=== PATIENT | female | born 1995 | race Caucasian/White ===

== ENCOUNTER 2019-12-21 16:13 | Inpatient (IN) | payer BC ==
[2019-12-22] MEDS ORDERED: TERBUTALINE 1 MG/ML VIAL SQ PRN (06:20)
[2019-12-22] MEDS ORDERED: LIDOCAINE 0.5% (PF) 5 MG/ML (50 ML SDV) SQ PRN (06:20)
[2019-12-22] MEDS ORDERED: CARBOPROST TROMETHAMINE 250 MCG/ML 1 ML AMP IM PRN (06:20)
[2019-12-22] MEDS ORDERED: OXYTOCIN 10 UNIT/ML 1 ML VIAL IM PRN (06:20)
[2019-12-22] MEDS ORDERED: METHYLERGONOVINE 0.2 MG/ML 1 ML AMP IM PRN (06:20)
[2019-12-22] MEDS ORDERED: OXYTOCIN 30 UNITS/500 ML NS 30 UNIT in SALINE 1 500ML.BAG IV SCH (06:20)
[2019-12-22] MEDS: LACTATED RINGERS 1,000 ML IV SCH ×2 (06:30→12:18)
[2019-12-22 06:42] LABS: Basophils % (A) 0 %; Eosinophils # (A) 0.1 k/uL (0-0.7); Eosinophils % (A) 1 %; HGB 11.7 gm/dL (11.4-16.0); Lymphocytes # (A) 1.9 k/uL (1.0-4.8); Lymphocytes % (A) 23 %; MCH 27.2 pg (25.0-35.0); MCHC 32.4 g/dL (31.0-37.0); Mean Platelet Volume 7.3; Monocytes # (A) 0.5 k/uL (0-1.0); Monocytes % (A) 6 %; Neutrophils # (A) 5.8 k/uL (1.3-7.7); Neutrophils % (A) 68 %; Platelet Count 332 k/uL (150-450); RBC 4.29 m/uL (3.80-5.40); RDW 13.6 % (11.5-15.5); WBC 8.6 k/uL (3.8-10.6)
[2019-12-22] MEDS ORDERED: SODIUM CHLORIDE 0.9% 100 ML BAG ONE (11:54)
[2019-12-22] MEDS ORDERED: fentaNYL (PF) 50 MCG/ML 5 ML AMP ONE (11:54)
[2019-12-22] MEDS ORDERED: ROPIVACAINE 5MG/ML 20ML VIAL ONE (11:54)
[2019-12-22] MEDS ORDERED: AMPICILLIN 250 MG VIAL IVPB ONE (20:17)
[2019-12-22] MEDS ORDERED: AMPICILLIN 2,000 MG in SODIUM CHLORIDE 0.9% 100 ML IVPB STA (20:21)
[2019-12-22] MEDS ORDERED: IBUPROFEN 600 MG TAB PO ONE (23:30)
[2019-12-23] MEDS ORDERED: AMPICILLIN 1,000 MG in SODIUM CHLORIDE 0.9% 50 ML IVPB SCH (00:30)
[2019-12-23] MEDS ORDERED: ACETAMINOPHEN TAB 325 MG TAB ONE (03:45)
[2019-12-23] MEDS ORDERED: ACETAMINOPHEN TAB 325 MG TAB PO PRN (04:56)
[2019-12-23] MEDS ORDERED: SIMETHICONE 80 MG CHEWABLE PO PRN (04:56)
[2019-12-23] MEDS ORDERED: BENZOCAINE/MENTHOL SPRAY 1 GM/SPRAY AEROSOL TOPICAL PRN (04:56)
[2019-12-23] MEDS ORDERED: diphenhydrAMINE 50 MG/ML 1 ML VIAL IVP PRN ×2 (04:56)
[2019-12-23] MEDS ORDERED: ZOLPIDEM 5 MG TAB PO PRN (04:56)
[2019-12-23] MEDS ORDERED: diphenhydrAMINE 25 MG CAP PO PRN (04:56)
[2019-12-23] MEDS ORDERED: LANOLIN CREAM 5 GM TUBE TOPICAL PRN (04:56)
[2019-12-23] MEDS ORDERED: HYDROCORTISONE 2.5% RECTAL CREAM 30 GM TUBE RECTAL PRN (04:56)
[2019-12-23] MEDS ORDERED: diphenhydrAMINE 50 MG CAP PO PRN (04:56)
[2019-12-23] MEDS ORDERED: WITCH HAZEL 1 EACH MED..PAD TOPICAL PRN (04:56)
[2019-12-23] MEDS ORDERED: OXYTOCIN 20 UNITS/1000 ML NS 1,000 ML IV SCH (05:00)
[2019-12-23] MEDS: LACTATED RINGERS 1,000 ML IV SCH (05:26)
[2019-12-23] MEDS: IBUPROFEN 600 MG TAB PO PRN ×2 (08:29→17:37)
[2019-12-23] MEDS: SENNOSIDES-DOCUSATE SODIUM 1 EACH TAB PO SCH (08:30)
--- NOTE | 2019-12-23 09:51 | P.HPOB ---
History of Present Illness H&P Date: 12/22/19 Chief Complaint: Induction of labor 24-year-old presents at 40 weeks and 1 day for induction of labor. Her cervix is 2 cm dilated, 70% effaced, -2 station. She is honorio irregular. heart tones 130 with moderate variability and reactive. Review of Systems All systems: negative Constitutional: Denies chills, Denies fever Eyes: denies blurred vision, denies pain Ears, nose, mouth and throat: Denies headache, Denies sore throat Cardiovascular: Denies chest pain, Denies shortness of breath Respiratory: Denies cough Gastrointestinal: Denies abdominal pain, Denies diarrhea, Denies nausea, Denies vomiting Genitourinary: Denies dysuria, Denies hematuria Musculoskeletal: Denies myalgias Integumentary: Denies pruritus, Denies rash Neurological: Denies numbness, Denies weakness Psychiatric: Denies anxiety, Denies depression Endocrine: Denies fatigue, Denies weight change Past Medical History Past Medical History: No Reported History Additional Past Medical History / Comment(s): Obstetric history: This is her first and [facility] care with me since the first trimester. Blood type was O+, and it was negative, rubella immune, hepatitis B negative, HIV nonreactive, RPR nonreactive, GBS negative. History of Any Multi-Drug Resistant Organisms: None Reported Past Surgical History: Cholecystectomy Past Anesthesia/Blood Transfusion Reactions: No Reported Reaction Past Psychological History: Anxiety Smoking Status: Never smoker Past Alcohol Use History: None Reported, Occasional Past Drug Use History: None Reported - Past Family History Mother Family Medical History: Diabetes Mellitus Medications and Allergies Home Medications Medication Instructions Recorded Confirmed Type Omeprazole [PriLOSEC] 20 mg PO AC-BID 12/22/19 12/22/19 History Pnv No.95/Ferrous Fum/Folic AC 1 each PO DAILY 12/22/19 12/22/19 History [ Multivitamin Tablet] Allergies Allergy/AdvReac Type Severity Reaction Status Date / Time No Known Allergies Allergy Verified 12/22/19 06:18 Exam Osteopathic Statement: *. No significant issues noted on an osteopathic structural exam other than those noted in the History and Physical/Consult. Vital Signs Temp Resp BP 12/23/19 08:00 97.7 F 16 103/77 Intake and Output 12/22/19 12/23/1920 22:59 06:59 14:59 Other: # Voids 1 Heart: Regular rate and rhythm Lungs: Clear to auscultation bilaterally Abdomen: Soft, nontender Extremities: Negative Homans sign Results Result Diagrams: 12/22/19 06:22 Assessment and Plan (1) Normal labor Current Visit: Yes Status: Acute Code(s): O80 - ENCOUNTER FOR FULL-TERM UN COMPLICATED DELIVERY; Z37.9 - OUTCOME OF DELIVERY, UNSPECIFIED SNOMED Code(s): 47184869 Plan: 1. Amniotomy and Pitocin for induction of labor 2. Anticipate normal vaginal delivery
--- NOTE | 2019-12-23 09:52 | P.PROBDLV ---
Vaginal Delivery Note - . Vaginal Delivery Note: 24-year-old presents at 40 weeks and 1 day for induction of labor. Her cervix is 2 cm dilated, 70% effaced, -2 station. She is honorio irregular. heart tones 130 with moderate variability and reactive. Amniotomy was performed at 6:52 AM clear fluid noted. Pitocin was also started. She got uncomfortable pretty fast and did get an epidural. She progressed slowly throughout the day. Her cervix was completely dilated just after 10 PM. She pushed, and delivered a viable male infant over intact perineum under epidural anesthesia at 2322. Head delivered OA, nuchal cord 1 easily reduced, anterior shoulder delivered gentle downward guidance on the posterior shoulder and rest of body. Nose and mouth bulb suctioned, cord clamped and cut, infant placed mother's abdomen. Apgars 7, 9, weight 8 lbs. 3 oz. Placenta delivered spontaneous, intact with three-vessel cord at 2324. Vagina, cervix, and perineum were inspected. Second-degree midline laceration was repaired with 3-0 Vicryl and 2-0 Vicryl. Estimated blood loss 150 mL.
--- NOTE | 2019-12-23 09:53 | P.PNOBGVD ---
Subjective - Subjective Principal diagnosis: Status post normal vaginal delivery day #1 Interval history: Patient seen and examined. Denies nausea, vomiting, chest pain, shortness of breath or calf pain. Patient reports: Reports appetite normal, Reports voiding normally, Reports pain well controlled, Reports ambulating normally [place]: doing well Objective - Latest Vital Signs Latest vital signs: Vital Signs Temp Resp BP 12/23/19 08:00 97.7 F 16 103/77 Intake and Output 12/22/19 12/23/19 12/23/19 22:59 06:59 14:59 Other: # Voids 1 - Exam Lungs: bilateral: normal Chest: Normal S1, Normal S2 Extremities: Present: normal Abdomen: Present: normal appearance, soft Uterus: Present: normal, firm Assessment and Plan (1) Normal labor Current Visit: Yes Status: Resolved Code(s): O80 - ENCOUNTER FOR FULL-TERM UNCOMPLICATED DELIVERY; Z37.9 - OUTCOME OF DELIVERY, UNSPECIFIED SNOMED Code(s): 55812409 (2) Normal vaginal delivery Current Visit: Yes Status: Acute Code(s): O80 - ENCOUNTER FOR FULL-TERM UNCOMPLICATED DELIVERY SNOMED Code(s): 87908375 Plan: 1. Continue care
[2019-12-24] MEDS: IBUPROFEN 600 MG TAB PO PRN ×2 (00:08→10:19)
--- NOTE | 2019-12-24 07:54 | P.DS ---
Providers Date of admission: 12/22/19 05:55 Expected date of discharge: 12/24/19 Attending physician: Charlene Gaines Primary care physician: Stated None - Discharge Diagnosis(es) (1) Normal labor Current Visit: Yes Status: Resolved (2) Normal vaginal delivery Current Visit: Yes Status: Acute Hospital Course: Patient presented for induction of labor. She underwent normal vaginal delivery. Her course was uncomplicated. She'll be discharged home day #2 in stable condition to follow-up with me in 6 weeks. Plan - Discharge Summary New Discharge Prescriptions: New Ibuprofen [Motrin] 600 mg PO Q6HR PRN #30 tab PRN Reason: Mild Pain Or Fever >= 100.5 No Action Omeprazole [PriLOSEC] 20 mg PO AC-BID Pnv No.95/Ferrous Fum/Folic AC [ Multivitamin Tablet] 1 each PO DAILY Discharge Medication List Omeprazole [PriLOSEC] 20 mg PO AC-BID 12/22/19 [History] Pnv No.95/Ferrous Fum/Folic AC [ Multivitamin Tablet] 1 each PO DAILY 12/22/19 [History] Ibuprofen [Motrin] 600 mg PO Q6HR PRN #30 tab 12/24/19 [Rx] Follow up Appointment(s)/Referral(s): Charlene Gaines DO [Doctor of Osteopathic Medicine] - 6 Weeks Discharge Disposition: HOME SELF-CARE
[2019-12-24 09:28] VITALS: BP 126/71; PULSE 101; RESP 20; TEMP 98
[2019-12-24] MEDS: SENNOSIDES-DOCUSATE SODIUM 1 EACH TAB PO SCH (10:19)
== END 2019-12-24 14:00 | disposition home or self-care (01) | DRG 807 ==
LOC: 4FBP 12-22 05:55
PROVIDERS: ADMIT Obstetrics & Gynecology; ATTEND Obstetrics & Gynecology
PROC: 3E033VJ Introduction of Other Hormone into Peripheral Vein, Percutaneous Approach (ICD-10-PCS; principal; 2019-12-22)
PROC: 10907ZC Drainage of Amniotic Fluid, Therapeutic from Products of Conception, Via Natural or Artificial Opening (ICD-10-PCS; principal; 2019-12-22)
PROC: 3E0R3BZ Introduction of Anesthetic Agent into Spinal Canal, Percutaneous Approach (ICD-10-PCS; principal; 2019-12-22)
PROC: 10E0XZZ Delivery of Products of Conception, External Approach (ICD-10-PCS; principal; 2019-12-22)
PROC: 00HU33Z Insertion of Infusion Device into Spinal Canal, Percutaneous Approach (ICD-10-PCS; principal; 2019-12-22)
PROC: 0KQM0ZZ Repair Perineum Muscle, Open Approach (ICD-10-PCS; principal; 2019-12-22)
DX: O69.81X0 Labor and delivery complicated by cord around neck, without compression, not applicable or unspecified (principal); Z37.0 Single live birth; O99.62 Diseases of the digestive system complicating childbirth; K21.9 Gastro-esophageal reflux disease without esophagitis; O70.1 Second degree perineal laceration during delivery; Z3A.40 40 weeks gestation of pregnancy; Z79.899 Other long term (current) drug therapy; Z90.49 Acquired absence of other specified parts of digestive tract; Z86.59 Personal history of other mental and behavioral disorders; Z83.3 Family history of diabetes mellitus
CPT/HCPCS: 85025; 86850; 86900; 86901

== ENCOUNTER → 2022-10-31 | Outpatient (CLI) | payer BC ==
--- NOTE | 2022-10-31 17:27 | CA ---
Transthoracic Echo Report Name: Neva Mcfarlane Age: 27 Gender: F : 1995 Exam Date: 10/31/2022 13:04 Exam Location: [facility] Ht (in): 64 Wt (lb): 130 Ordering Physician: Guru Hope MD Attending/Referring Phys: Guru Hope MD Pool Player Fernando Lovett [facility] Procedure CPT: Indications: R00.2 palpiations Cardiac Hx: Technical Quality: Fair Contrast 1: Total Dose (mL): Contrast 2: Total Dose (mL): MEASUREMENTS (Male / Female) Normal Values 2D ECHO LV Diastolic Diameter PLAX 3.9 cm 4.2 - 5.9 / 3.9 - 5.3 cm LV Systolic Diameter PLAX 2.1 cm LV Fractional Shortening PLAX 45.8 % IVS Diastolic Thickness 0.6 cm 0.6 - 1.0 / 0.6 - 0.9 cm IVS Systolic Thickness 0.7 cm LVPW Diastolic Thickness 0.6 cm 0.6 - 1.0 / 0.6 - 0.9 cm LVPW Systolic Thickness 1.2 cm LV Relative Wall Thickness 0.3 LVOT Diameter 2.2 cm LA Systolic Diameter LX 1.7 cm 3.0 - 4.0 / 2.7 - 3.8 cm LV Diastolic Volume MOD BP 53.3 cm??? 67 - 155 / 56 - 104 cm??? LV Systolic Volume MOD BP 26.8 cm??? 22 - 58 / 19 - 49 cm??? LV Ejection Fraction MOD BP 49.6 % >= 55 % LV Stroke Volume MOD BP 26.5 cm??? LV Diastolic Volume MOD 4C 48.7 cm??? LV Systolic Volume MOD 4C 25.7 cm??? LV Ejection Fraction MOD 4C 47.3 % LV Stroke Volume MOD 4C 23.1 cm??? LV Diastolic Length 4C 6.2 cm LV Systolic Length 4C 5.2 cm LV Diastolic Volume MOD 2C 57.5 cm??? LV Systolic Volume MOD 2C 25.0 cm??? LV Ejection Fraction MOD 2C 56.5 % LV Stroke Volume MOD 2C 32.5 cm??? LV Diastolic Length 2C 6.3 cm LV Systolic Length 2C 4.6 cm LA Area 4C View 10.0 cm??? <= 20 cm??? LA Volume 23.9 cm??? 18 - 58 / 22 - 52 cm??? M-MODE Aortic Root Diameter MM 2.7 cm LA Systolic Diameter MM 2.4 cm LA Ao Ratio MM 0.9 MV E Point Septal Separation 0.5 cm AV Cusp Separation MM 1.8 cm DOPPLER AV Peak Velocity 99.1 cm/s AV Peak Gradient 3.9 mmHg MV Peak Velocity 80.4 cm/s MV Peak Gradient 2.6 mmHg MV Mean Velocity 50.0 cm/s MV Mean Gradient 1.1 mmHg MV Velocity Time Integral 16.6 cm MV Deceleration Otoe 225.8 cm/s??? MV Pressure Half Time 66.6 ms MV Area PHT 3.3 cm??? Mitral E Point Velocity 51.8 cm/s Mitral A Point Velocity 25.6 cm/s Mitral E to A Ratio 2.0 MV Deceleration Time 229.5 ms MV E' Velocity 10.4 cm/s Mitral E to MV E' Ratio 5.0 TR Peak Velocity 148.2 cm/s TR Peak Gradient 8.8 mmHg Right Ventricular Systolic Press 13.8 mmHg PV Peak Velocity 80.9 cm/s PV Peak Gradient 2.6 mmHg FINDINGS Left Ventricle Left ventricular ejection fraction is estimated at 55-60 %. Normal basal systolic function. Right Ventricle Normal right ventricular size and function. Right Atrium Normal right atrial size. Left Atrium Normal left atrial size. Mitral Valve Structurally normal mitral valve. Trace to mild mitral regurgitation. Aortic Valve Trileaflet aortic valve. Tricuspid Valve Mild tricuspid regurgitation. Pulmonic Valve Pulmonic valve not well visualized. Pericardium Normal pericardium. No pericardial effusion. Aorta Normal size aortic root and proximal ascending aorta. CONCLUSIONS Normal LV systolic function Previewed by: Dr. Pawel Faustin MD (Electronically Signed) Final Date: 31 October 2022 17:26
== END | disposition home or self-care (01) ==
LOC: RADECHMAIN 12:21
PROVIDERS: ATTEND Internal Medicine
DX: R00.2 Palpitations (principal)
CPT/HCPCS: 93225; 93226; 93306

== ENCOUNTER 2023-05-11 06:00 | Inpatient (IN) | payer BC ==
[2023-05-11] MEDS ORDERED: OXYTOCIN 10 UNIT/ML 1 ML VIAL IM PRN (06:28)
[2023-05-11] MEDS ORDERED: LIDOCAINE 0.5% (PF) 5 MG/ML (50 ML SDV) SQ PRN (06:28)
[2023-05-11] MEDS ORDERED: TRANEXAMIC 1,000 MG/100ML-NACL 1,000 MG in EMPTY BAG 1 BAG IV PRN (06:28)
[2023-05-11] MEDS ORDERED: TERBUTALINE 1 MG/ML VIAL SQ PRN (06:28)
[2023-05-11] MEDS ORDERED: CARBOPROST TROMETHAMINE 250 MCG/ML 1 ML AMP IM PRN (06:28)
[2023-05-11] MEDS ORDERED: METHYLERGONOVINE 0.2 MG/ML 1 ML AMP IM PRN (06:28)
[2023-05-11] MEDS ORDERED: miSOPROStoL 200 MCG TAB PO PRN (06:28)
[2023-05-11 06:56] LABS: Basophils % (A) 0 %; Eosinophils % (A) 1 %; HCT 34.5 % (34.0-46.0); HGB 11.9 gm/dL (11.4-16.0); Lymphocytes # (A) 1.9 k/uL (1.0-4.8); Lymphocytes % (A) 23 %; MCHC 34.7 g/dL (31.0-37.0); MCV 83.8 fL (80.0-100.0); Mean Platelet Volume 7.7; Monocytes # (A) 0.4 k/uL (0-1.0); Monocytes % (A) 4 %; Neutrophils % (A) 71 %; Platelet Count 270 k/uL (150-450); RBC 4.11 m/uL (3.80-5.40); RDW 13.4 % (11.5-15.5); WBC 8.6 k/uL (3.8-10.6)
[2023-05-11] MEDS: LACTATED RINGERS 1,000 ML IV SCH ×2 (07:01→19:13)
[2023-05-11] MEDS: OXYTOCIN 30 UNITS/500 ML NS 30 UNIT in SALINE 1 500ML.BAG IV SCH ×2 (07:02→19:12)
--- NOTE | 2023-05-11 09:03 | P.HPOB ---
History of Present Illness H&P Date: 05/11/23 Chief Complaint: induction of labor 27-year-old presents at 39 weeks and 4 days for induction of labor. Her cervix is 1-2 cm dilated, 80% effaced, -2 station. Patient is honorio irregularly. heart tones 140 with moderate variability and reactive. Review of Systems All systems: negative Constitutional: Denies chills, Denies fever Eyes: denies blurred vision, denies pain Ears, nose, mouth and throat: Denies headache, Denies sore throat Cardiovascular: Denies chest pain, Denies shortness of breath Respiratory: Denies cough Gastrointestinal: Denies abdominal pain, Denies diarrhea, Denies nausea, Denies vomiting Genitourinary: Denies dysuria, Denies hematuria Musculoskeletal: Denies myalgias Integumentary: Denies pruritus, Denies rash Neurological: Denies numbness, Denies weakness Psychiatric: Denies anxiety, Denies depression Endocrine: Denies fatigue, Denies weight change Past Medical History Past Medical History: No Reported History Additional Past Medical History / Comment(s): Obstetric history: Blood type was O+, and it was negative, rubella immune, hepatitis B negative, HIV nonreactive, RPR nonreactive, GBS negative. History of Any Multi-Drug Resistant Organisms: None Reported Past Surgical History: Cholecystectomy Past Anesthesia/Blood Transfusion Reactions: No Reported Reaction Past Psychological History: Anxiety Smoking Status: Never smoker Past Alcohol Use History: None Reported Past Drug Use History: None Reported - Past Family History Mother Family Medical History: Diabetes Mellitus Medications and Allergies Home Medications Medication Instructions Recorded Confirmed Type Pnv No.95/Ferrous Fum/Folic AC 1 tab PO DAILY 12/22/19 05/11/23 History [ Multivitamin Tablet] Aspirin [Adult Low Dose Aspirin EC] 81 mg PO DAILY 05/11/23 05/11/23 History Omeprazole [PriLOSEC] 20 mg PO AC-BID 05/11/23 05/11/23 History Allergies Allergy/AdvReac Type Severity Reaction Status Date / Time No Known Allergies Allergy Verified 05/11/23 06:25 Exam Osteopathic Statement: *. No significant issues noted on an osteopathic structural exam other than those noted in the History and Physical/Consult. Vital Signs Temp Pulse Resp BP Pulse Ox 05/11/23 06:25 97.3 F L 107 H 16 130/77 97 Intake and Output 05/10/23 05/11/23 05/11/23 22:59 06:59 14:59 Other: Weight 76.204 kg Heart: Regular rate and rhythm Lungs: Clear to auscultation bilaterally Abdomen: Soft, nontender Extremities: Negative Homans sign Results Result Diagrams: 05/11/23 06:30 Assessment and Plan (1) Elective induction of labor planned Current Visit: Yes Status: Acute Code(s): [id number] - SNOMED Code(s): 956927961 Plan: 1. Induction of labor with amniotomy and Pitocin 2. Anticipate normal vaginal delivery
[2023-05-11] MEDS ORDERED: fentaNYL (PF) 50 MCG/ML 5 ML AMP ONE (11:45)
[2023-05-11] MEDS ORDERED: SODIUM CHLORIDE 0.9% 250 ML BAG ONE (11:45)
[2023-05-11] MEDS ORDERED: ROPIVACAINE 5 MG/ML 30 ML VIAL ONE (11:45)
[2023-05-11] MEDS ORDERED: diphenhydrAMINE 50 MG/ML 1 ML VIAL IVP PRN ×2 (18:51)
[2023-05-11] MEDS ORDERED: diphenhydrAMINE 25 MG CAP PO PRN (18:51)
[2023-05-11] MEDS ORDERED: ZOLPIDEM 5 MG TAB PO PRN (18:51)
[2023-05-11] MEDS ORDERED: BENZOCAINE/MENTHOL SPRAY 1 GM/SPRAY AEROSOL TOPICAL PRN (18:51)
[2023-05-11] MEDS ORDERED: LANOLIN CREAM 5 GM TUBE TOPICAL PRN (18:51)
[2023-05-11] MEDS ORDERED: SIMETHICONE 80 MG CHEWABLE PO PRN (18:51)
[2023-05-11] MEDS ORDERED: HYDROCORTISONE 2.5% RECTAL CREAM 30 GM TUBE RECTAL PRN (18:51)
[2023-05-11] MEDS ORDERED: diphenhydrAMINE 50 MG CAP PO PRN (18:51)
[2023-05-11] MEDS ORDERED: OXYTOCIN 30 UNITS/500 ML NS 30 UNIT in SALINE 1 500ML.BAG IV SCH (19:00)
--- NOTE | 2023-05-11 19:04 | P.PROBDLV ---
Vaginal Delivery Note - . Vaginal Delivery Note: 27-year-old presents at 39 weeks and 4 days for induction of labor. Her cervix is 1-2 cm dilated, 80% effaced, -2 station. Patient is honorio irregularly. heart tones 140 with moderate variability and reactive. Pitocin was started amniotomy performed at the dural when she was 3 Cm dilated. Her cervix was completely dilated at 1816. She pushed, and delivered a viable male over intact perineum under epidural anesthesia at 1836. Head deliv ered OA, anterior shoulder delivered gentle downward guidance for by posterior shoulder and rest of body. Nose and mouth bulb suctioned, cord clamped and cut, infant placed mother's abdomen. Apgars 9, 9, weight 7 lbs. 7 oz. Placenta delivered spontaneously, intact with three-vessel cord at 1839. Vagina, cervix, perineum inspected. First-degree midline laceration was repaired with 3-0 Vicryl. Estimated blood loss 150 mL. Mother and baby in stable condition.
[2023-05-11] MEDS: SENNOSIDES-DOCUSATE SODIUM 1 EACH TAB PO SCH (19:18)
[2023-05-11] MEDS: IBUPROFEN 600 MG TAB PO PRN (21:33)
[2023-05-11 23:56] VITALS: RESP 18
[2023-05-12] MEDS: IBUPROFEN 600 MG TAB PO PRN ×3 (02:49→16:32)
[2023-05-12 06:38] LABS: Basophils % (A) 0 %; Eosinophils # (A) 0.1 k/uL (0-0.7); Eosinophils % (A) 1 %; HCT 34.4 % (34.0-46.0); HGB 11.6 gm/dL (11.4-16.0); Lymphocytes # (A) 1.9 k/uL (1.0-4.8); Lymphocytes % (A) 17 %; MCHC 33.7 g/dL (31.0-37.0); Mean Platelet Volume 7.7; Monocytes # (A) 0.5 k/uL (0-1.0); Monocytes % (A) 5 %; Neutrophils # (A) 8.4 k/uL (1.3-7.7); Neutrophils % (A) 76 %; Platelet Count 264 k/uL (150-450); RDW 13.2 % (11.5-15.5)
[2023-05-12] MEDS: SENNOSIDES-DOCUSATE SODIUM 1 EACH TAB PO SCH (07:48)
[2023-05-12] MEDS: ACETAMINOPHEN TAB 325 MG TAB PO PRN ×2 (07:48→13:59)
--- NOTE | 2023-05-12 09:12 | P.DS ---
Providers Date of admission: 05/11/23 06:10 Expected date of discharge: 05/12/23 Attending physician: Charlene Gaines Primary care physician: Stated None - Discharge Diagnosis(es) (1) Elective induction of labor planned Current Visit: Yes Status: Resolved (2) Status post normal vaginal delivery Current Visit: Yes Status: Acute Hospital Course: Patient presented for induction of labor. She underwent a normal vaginal delivery without complications. course has been uneventful. She denies nausea, vomiting, chest pain, shortness of breath or calf pain. Patient will be discharged home day #1 in stable condition to follow-up with me in 6 weeks. Plan - Discharge Summary New Discharge Prescriptions: New Ibuprofen [Motrin] 600 mg PO Q6HR PRN #30 tab PRN Reason: Mild Pain (Scale 1 To 3) No Action Pnv No.95/Ferrous Fum/Folic AC [ Multivitamin Tablet] 1 tab PO DAILY Omeprazole [PriLOSEC] 20 mg PO AC-BID Aspirin [Adult Low Dose Aspirin EC] 81 mg PO DAILY Discharge Medication List Pnv No.95/Ferrous Fum/Folic AC [ Multivitamin Tablet] 1 tab PO DAILY 12/22/19 [History] Aspirin [Adult Low Dose Aspirin EC] 81 mg PO DAILY 05/11/23 [History] Omeprazole [PriLOSEC] 20 mg PO AC-BID 05/11/23 [History] Ibuprofen [Motrin] 600 mg PO Q6HR PRN #30 tab 05/12/23 [Rx] Follow up Appointment(s)/Referral(s): Charlene Gaines DO [Doctor of Osteopathic Medicine] - 6 Weeks Discharge Disposition: HOME SELF-CARE
[2023-05-12 16:41] VITALS: BP 112/75; PULSE 84; TEMP 97.7
== END 2023-05-12 18:53 | disposition home or self-care (01) | DRG 807 ==
LOC: 4FBP 06:10
PROVIDERS: ADMIT Obstetrics & Gynecology; ATTEND Obstetrics & Gynecology
PROC: 10E0XZZ Delivery of Products of Conception, External Approach (ICD-10-PCS; principal; 2023-05-11)
PROC: 0HQ9XZZ Repair Perineum Skin, External Approach (ICD-10-PCS; 2023-05-11)
PROC: 10907ZC Drainage of Amniotic Fluid, Therapeutic from Products of Conception, Via Natural or Artificial Opening (ICD-10-PCS; 2023-05-11)
PROC: 3E033VJ Introduction of Other Hormone into Peripheral Vein, Percutaneous Approach (ICD-10-PCS; 2023-05-11)
DX: O70.0 First degree perineal laceration during delivery (principal); Z37.0 Single live birth; Z3A.39 39 weeks gestation of pregnancy; Z79.82 Long term (current) use of aspirin; Z83.3 Family history of diabetes mellitus
CPT/HCPCS: 85025; 86850; 86900; 86901

== ENCOUNTER → 2023-10-04 | Outpatient (CLI) | payer BC ==
[2023-10-04 13:38] LABS: Basophils # (A) 0.02 X 10*3/uL (0.00-0.10); Basophils % (A) 0.4 %; Eosinophils # (A) 0.07 X 10*3/uL (0.04-0.35); Eosinophils % (A) 1.3 %; HCT 42.4 % (37.2-46.3); HGB 13.6 g/dL (12.0-15.0); Lymphocytes # (A) 1.96 X 10*3/uL (0.90-5.00); Lymphocytes % (A) 37.5 %; MCHC 32.1 g/dL (32.0-37.0); MCV 84.3 FL (80.0-97.0); Monocytes # (A) 0.39 X 10*3/uL (0.20-1.00); Monocytes % (A) 7.5 %; NRBC Per 100 WBC 0 X 10*3/uL (0.00-0.01); Neutrophils # (A) 2.76 X 10*3/uL (1.80-7.70); Neutrophils % (A) 52.9 %; Platelet Count 240 X 10*3/uL (140-440); RBC 5.03 X 10*6/uL (4.10-5.20); RDW 12.9 % (11.5-14.5); WBC 5.22 X 10*3/uL (4.50-10.00)
[2023-10-04 14:12] LABS: Blood Urea Nitrogen 17.1 mg/dL (9.0-27.0); Creatine Kinase 101 U/L (26-186); Glucose 91 mg/dL (70-110); Rheumatoid Factor, Qnt <15 IU/mL (0-15)
[2023-10-04 14:13] LABS: ALT 13 U/L (8-44); AST 18 U/L (13-35); Albumin 4.8 g/dL (3.8-4.9); Alkaline Phosphatase 90 U/L (41-126); Carbon Dioxide 23.9 mmol/L (21.6-31.8); Chloride 105 mmol/L (96-109); Globulin 2.4 g/dL (1.6-3.3); Potassium 4.2 mmol/L (3.5-5.5); Sodium 141 mmol/L (135-145); Total Bilirubin 0.3 mg/dL (0.3-1.2); Total Protein 7.2 g/dL (6.2-8.2); Uric Acid 4.1 mg/dL (2.9-7.7)
[2023-10-06 12:34] LABS: Cyclic Citrull Pep IgG Unit <1.5 U/mL (<=3.9); Cyclic Citrullinated Pep IgG Negative
[2023-10-06 13:51] LABS: Centromere Antibody <0.2 AI; Centromere Antibody Interp Negative (Negative); DNA Double-Stranded Negative (Negative); Scleroderma SC-70 Ab <0.2 AI
== END | disposition home or self-care (01) ==
LOC: LABWHC1 09:42
PROVIDERS: ATTEND Internal Medicine
DX: M25.50 Pain in unspecified joint (principal)
CPT/HCPCS: 36415; 80053; 82550; 84443; 84550; 85025; 86038; 86200; 86225; 86235; 86431